=== PATIENT | female | born 2005 | race Two or more races ===

== ENCOUNTER 2024-04-27 22:53 | Emergency (ER) | payer OTHER ==
[~2024-04-27] VITALS: Ht 142.2 cm; Wt 54.4 kg
[2024-04-28] MEDS ORDERED: CEFTRIAXONE SODIUM 1,000 MG VIAL IM STA (03:05)
[2024-04-28] MEDS ORDERED: PHENAZOPYRIDINE HCL 100 MG TABLET PO STA (03:06)
[2024-04-28] MEDS ORDERED: CEFTRIAXONE SODIUM 1,000 MG VIAL ONE (03:09)
[2024-04-28] MEDS ORDERED: PHENAZOPYRIDINE HCL 100 MG TABLET PO ONE (03:09)
[2024-04-28 03:25] LABS: PH,URINE 5.5 (5.0-8.0); URINE APPEARANCE Turbid; URINE BILIRRUBIN Negative (NEGATIVE); URINE BLOOD Large; URINE COLOR Yellow; URINE GLUCOSE Negative (NEGATIVE); URINE LEUKOCYTE Moderate; URINE NITRATE Negative; URINE PROTEIN 30 (NEGATIVE); URINE UROBILINOGEN 0.2 E.U./dl
[2024-04-28 03:29] LABS: URINE BACTERIA 7025.6 uL (0.0-1933); URINE EPITHELIAL CELLS 24.4 uL (0.0-38.8); URINE RBC 903.4 uL (0.0-20.8); URINE WBC 4474.2 uL (0.0-23.2)
[2024-04-28 05:00] LABS: URINE CRYSTALS FEW /HPF; URINE YEAST FEW /hpf
[2024-04-28] MEDS ORDERED: PYRIDIUM DS200 MG PO (05:33)
[2024-04-28] MEDS ORDERED: CEPHALEXIN500 MG PO (05:33)
== END 2024-04-28 05:39 ==
LOC: ER 22:53
PROVIDERS: General Practice
DX: N39.0 Urinary tract infection, site not specified (principal); B96.89 Other specified bacterial agents as the cause of diseases classified elsewhere

== ENCOUNTER 2025-06-03 11:23 | Emergency (ER) | payer OTHER ==
[~2025-06-03] VITALS: Ht 142.2 cm; Wt 54.4 kg
[~2025-06-03 11:23] MED LIST: CEPHALEXIN500 MG PO; PYRIDIUM DS200 MG PO
[2025-06-03] MEDS ORDERED: BUTALB/ACETAMINOPHEN/CAFFEINE 1 TAB TABLET PO ONE ×2 (14:26→14:30)
[2025-06-03] MEDS ORDERED: RINGERS SOLUTION,LACTATED 1,000 ML IV SCH (14:30)
[2025-06-03 15:04] LABS: BASO % 0.3 % (0.1-1.2); EOS # 0.00 (0.04-0.54); EOS % 0.0 % (0.7-7.0); LYMPH # 0.78 (1.18-3.74); LYMPH % 5.4 % (19.3-53.1); MEAN PLATELET VOLUME 9.60 fl (9.4-12.4); MONO # 0.74 (0.24-0.82); MONO % 5.2 % (4.7-12.5); NEUT # 12.74 (1.56-6.13); NEUT % 88.8 % (34.0-71.1); RED CELL DISTRIBUTION WIDTH 12.1 % (11.6-14.4)
[2025-06-03 15:33] LABS: BUN CREA RATIO 13.0 (7.0-25.0); CREATININE SERUM 0.72 mg/dL (0.55-1.02); GFR 101.29; GLUCOSE FASTING 88.0 mg/dL (65-100); OSMOLALITY SERUM 268.0 MOSM/KG (275-295)
[2025-06-03 16:05] LABS: COVID-19 AG NEGATIVE (NEGATIVE)
== END 2025-06-03 17:22 | disposition home or self-care (01) ==
LOC: ER 11:23
PROVIDERS: Emergency Medicine
DX: J06.9 Acute upper respiratory infection, unspecified (principal)